=== PATIENT | female | born 1965 | race African-American/Black ===

== ENCOUNTER 2016-07-20 06:00 | Emergency (ER) | payer MEDICAID ==
[~2016-07-20] VITALS: Ht 170.2 cm; Wt 68.0 kg
[2016-07-20 06:09] VITALS: BP 160/95
--- NOTE | 2016-07-20 06:14 | NUR ---
AMBULATED TO ER BED 5
--- NOTE | 2016-07-20 06:20 | NUR ---
RECIEVED PT TO ED. PT C.O. LEFT KNEE PAIN/SWELLING. PT IS A/O X3, STABLE. NO ACUTE DISTRESS NOTED. DENIES CHEST PAIN, SOB, AND N/V. VSS ARE STABLE. WILL CONTINUE TO MONITOR PT.
[2016-07-20] MEDS ORDERED: KETOROLAC 60 MG/2 ML VIAL IM ONE (07:40)
--- NOTE | 2016-07-20 08:05 | NUR ---
Patient discharged with v/s stable. Written and verbal after care instructions given and explained. Patient alert, oriented and verbalized understanding of instructions. Ambulatory with steady gait. All questions addressed prior to discharge. ID band removed. Patient advised to follow up with PMD. Rx of BACTRIM, KEFLEX AND MOTRIN given. Patient educated on indication of medication including possible reaction and side effects. Opportunity to ask questions provided and answered.
[2016-07-20 08:17] VITALS: BP 120/80
== END 2016-07-20 08:05 | disposition home or self-care (01) ==
LOC: MED 06:00
DX: M70.52 Other bursitis of knee, left knee (principal); L03.116 Cellulitis of left lower limb; F17.200 Nicotine dependence, unspecified, uncomplicated
CPT/HCPCS: 73562; 96372; 99284; J1885

== ENCOUNTER 2016-08-16 02:23 | Emergency (ER) | payer MEDICAID ==
[~2016-08-16] VITALS: Ht 167.6 cm; Wt 74.8 kg
[2016-08-16 02:31] VITALS: BP 141/88
--- NOTE | 2016-08-16 02:52 | NUR ---
AMBULATED TO ER BED 7
--- NOTE | 2016-08-16 02:55 | NUR ---
PATIENT PRESENTS TO ED WITH LEFT LEG PAIN AND SWELLING . PT STATES RECENTLY BEING DIAGNOSED WITH CELLULITIS TO LEFT LEG, AND COMPLETED PRESCRIBED ABX. DENIES N/V/D; SKIN IS PINK/WARM/DRY; AAOX4 WITH EVEN AND STEADY GAIT; LUNGS CLEAR BL; HR EVEN AND REGULAR; PT DENIES ANY FEVER, CP, SOB, OR COUGH AT THIS TIME; PATIENT STATES PAIN OF 9/10 AT THIS TIME; VSS; PATIENT POSITIONED FOR COMFORT; HOB ELEVATED; BEDRAILS UP X2; BED DOWN. ER MD MADE AWARE OF PT STATUS.
[2016-08-16] MEDS ORDERED: LIDOCAINE/EPI 1% 1:100000 20 ML VIAL INJ ONE (03:45)
[2016-08-16] MEDS ORDERED: KETOROLAC 30 MG/ML VIAL IM ONE (03:45)
[2016-08-16 04:40] VITALS: BP 132/87
--- NOTE | 2016-08-16 04:40 | NUR ---
Patient discharged with v/s stable. Written and verbal after care instructions given and explained. Patient alert, oriented and verbalized understanding of instructions. Ambulatory with steady gait. All questions addressed prior to discharge. ID band removed. Patient advised to follow up with PMD. Rx of NORCO 5MG-325MG TABLET AND NAPROSYN 500MG TABLET given. Patient educated on indication of medication including possible reaction and side effects. Opportunity to ask questions provided and answered.
== END 2016-08-16 04:40 | disposition home or self-care (01) ==
LOC: MED 02:23
DX: M70.52 Other bursitis of knee, left knee (principal); Y93.89 Activity, other specified
CPT/HCPCS: 20610; 96372; 99284; J1885; J2001

== ENCOUNTER 2016-10-04 00:55 | Emergency (ER) | payer MEDICAID ==
[~2016-10-04] VITALS: Ht 167.6 cm; Wt 77.1 kg
[2016-10-04 01:11] VITALS: BP 132/84
--- NOTE | 2016-10-04 01:44 | NUR ---
PT TAKEN TO BED 7
--- NOTE | 2016-10-04 01:47 | NUR ---
PATIENT PRESENTS TO ED WITH C/O LEFT KNEE PAIN . PT DENIES N/V/D; SKIN IS PINK/WARM/DRY; AAOX4 WITH EVEN AND STEADY GAIT; LUNGS CLEAR BL; HR EVEN AND REGULAR; PT DENIES ANY FEVER, CP, SOB, OR COUGH AT THIS TIME; PATIENT STATES PAIN OF 8/10 AT THIS TIME; VSS; PATIENT POSITIONED FOR COMFORT; HOB ELEVATED; BEDRAILS UP X2; BED DOWN. ER MD MADE AWARE OF PT STATUS.
--- NOTE | 2016-10-04 02:21 | NUR ---
Dr. Todd evaluating patient at bedside.
[2016-10-04 03:07] VITALS: BP 127/77
== END 2016-10-04 03:07 | disposition home or self-care (01) ==
LOC: MED 00:55
DX: M25.562 Pain in left knee (principal)

== ENCOUNTER 2017-01-31 05:09 | Emergency (ER) | payer MEDICAID ==
[~2017-01-31] VITALS: Ht 167.6 cm; Wt 77.1 kg
[2017-01-31 05:19] VITALS: BP 119/69
--- NOTE | 2017-01-31 05:26 | NUR ---
AMBULATED TO ER BED 7
--- NOTE | 2017-01-31 05:27 | NUR ---
Patient being evaluated by physician at bedside.
[2017-01-31] MEDS ORDERED: KETOROLAC 60 MG/2 ML VIAL IM ONE (05:30)
[2017-01-31 05:52] VITALS: BP 119/69
--- NOTE | 2017-01-31 05:52 | NUR ---
Patient discharged with v/s stable. Written and verbal after care instructions given and explained. Patient alert, oriented and verbalized understanding of instructions. Ambulatory with steady gait. All questions addressed prior to discharge. ID band removed. Patient advised to follow up with PMD. Rx of norco, motrin given. Patient educated on indication of medication including possible reaction and side effects. Opportunity to ask questions provided and answered.
== END 2017-01-31 05:52 | disposition home or self-care (01) ==
LOC: MED 05:09
DX: M25.562 Pain in left knee (principal); F17.200 Nicotine dependence, unspecified, uncomplicated
CPT/HCPCS: 96372; 99283; J1885

== ENCOUNTER 2018-11-20 03:16 | Emergency (ER) | payer MEDICAID ==
[~2018-11-20] VITALS: Ht 167.6 cm; Wt 72.1 kg
[2018-11-20 03:17] VITALS: BP 150/90
--- NOTE | 2018-11-20 03:17 | NUR ---
TO BED # 4 AMBULATORY
--- NOTE | 2018-11-20 03:20 | NUR ---
pt came into er with c/o pain to the right eye. pt also had some discomfort under her breasts. pt has a mild rash under breast area. pt eye was red. pt denied blurred vision. pt is a/ox4. er md made aware. safety measures in place. pt pain level is 6/10 at this time.
--- NOTE | 2018-11-20 03:40 | NUR ---
er at pt bedside
[2018-11-20] MEDS ORDERED: FLUORESCEIN OPTH STRIP 0.6 MG ONE (03:49)
[2018-11-20 03:50] VITALS: BP 150/90
--- NOTE | 2018-11-20 03:50 | NUR ---
Patient discharged with v/s stable. Written and verbal after care instructions given and explained. Patient alert, oriented and verbalized understanding of instructions. Ambulatory with steady gait. All questions addressed prior to discharge. ID band removed. Patient advised to follow up with PMD. Rx of CIPRO OPHTHALMIC TAMIKO, MOTRIN, AND KETOCONAZOLE TOPICAL CREAM given. Patient educated on indication of medication including possible reaction and side effects. Opportunity to ask questions provided and answered.
[2018-11-23] MEDS ORDERED: FLUORESCEIN OPTH STRIP 0.6 MG OP ONE (06:35)
== END 2018-11-20 03:50 | disposition home or self-care (01) ==
LOC: MED 03:16
DX: H10.9 Unspecified conjunctivitis (principal); B96.89 Other specified bacterial agents as the cause of diseases classified elsewhere; B35.4 Tinea corporis; F17.200 Nicotine dependence, unspecified, uncomplicated
CPT/HCPCS: 99283

== ENCOUNTER 2021-02-17 06:33 | Emergency (ER) | payer MEDICAID ==
[~2021-02-17] VITALS: Ht 167.6 cm; Wt 81.6 kg
[2021-02-17 06:50] VITALS: BP 158/84
--- NOTE | 2021-02-17 06:50 | NUR ---
TO BED AMBULATORY
[2021-02-17 08:32] LABS: BASOPHILS # (AUTO) 0.1 K/uL (0.00-0.22); BASOPHILS % (AUTO) 0.7 % (0.0-2.0); EOSINOPHILS # (AUTO) 0.1 K/uL (0-0.4); EOSINOPHILS % (AUTO) 1.5 % (0.0-4.0); HEMATOCRIT 43.8 % (36-48); HEMOGLOBIN 14.2 g/dL (12.0-16.0); LYMPHOCYTES # (AUTO) 1.5 K/uL (2.5-16.5); LYMPHOCYTES % (AUTO) 16.6 % (20.5-51.1); MEAN CORPUSCULAR HEMOGLOBIN 28 pg (27-31); MEAN CORPUSCULAR HGB CONC 33 g/dL (33-37); MEAN CORPUSCULAR VOLUME 86.6 fL (80-94); MONOCYTES # (AUTO) 0.6 K/uL (0.8-1.0); MONOCYTES % (AUTO) 6.2 % (1.7-9.3); NEUTROPHILS # (AUTO) 6.7 K/uL (1.8-7.7); PLATELET COUNT (AUTO) 274 K/uL (140-450); RED BLOOD CELL COUNT(AUTO) 5.06 MIL/uL (4.20-5.40); RED CELL DISTRIBUTION WIDTH 17.1 % (11.6-13.7); WHITE BLOOD COUNT (AUTO) 8.9 K/uL (4.8-10.8)
[2021-02-17 08:51] LABS: ALBUMIN 3.5 g/dL (3.4-5.0); ANION GAP 10.4 (8-16); CREATININE 0.8 mg/dL (0.6-1.3); POTASSIUM 3.4 mmol/L (3.5-5.1); TOTAL BILIRUBIN 0.3 mg/dL (0.0-1.0)
[2021-02-17] MEDS ORDERED: FURO-572 PO (10:20)
[2021-02-17 10:29] VITALS: BP 150/50
--- NOTE | 2021-02-17 10:29 | NUR ---
Patient discharged with v/s stable. Written and verbal after care instructions given and explained. Patient alert, oriented and verbalized understanding of instructions. Ambulatory with steady gait. All questions addressed prior to discharge. ID band removed. Patient advised to follow up with PMD. Rx of Furosemide given. Patient educated on indication of medication including possible reaction and side effects. Opportunity to ask questions provided and answered.
== END 2021-02-17 10:29 | disposition home or self-care (01) ==
LOC: MED 06:33
DX: R60.0 Localized edema (principal); F17.210 Nicotine dependence, cigarettes, uncomplicated; Z71.6 Tobacco abuse counseling
CPT/HCPCS: 36415; 71045; 80053; 83690; 83880; 84484; 85025; 93005; 99285; Q0092

== ENCOUNTER 2021-03-13 04:40 | Emergency (ER) | payer MEDICAID ==
[~2021-03-13] VITALS: Ht 167.6 cm; Wt 81.6 kg
[~2021-03-13 04:40] MED LIST: FURO-572 PO
[2021-03-13 04:51] VITALS: BP 159/84
--- NOTE | 2021-03-13 05:09 | NUR ---
55 yo f bib self with c/c of vaginal itch x4days. pt states their is discharge but doesnt remember what color it is. states their is a bad smell although it is not a fishy smell. pt states she has burning inside and itching on thighs. pt has been applying a medicated powder she given for her arm pits, little to no relief. pt denies having sex, stated she is celibate. hx:denies rx:psych meds denies allerg
--- NOTE | 2021-03-13 05:23 | NUR ---
pt ambulated to rr to give urine.
--- NOTE | 2021-03-13 05:27 | NUR ---
urine collected and given to jose from lab
[2021-03-13 05:36] LABS: APPEARANCE,URINE HAZY (CLEAR); BILIRUBIN,URINE NEGATIVE (NEGATIVE); BLOOD, URINE 2+ (NEGATIVE); COLOR,URINE YELLOW (YELLOW); LEUKOCYTE ESTERASE ,URINE 2+ (NEGATIVE); NITRITE, URINE NEGATIVE (NEGATIVE); UGLUCOSE NEGATIVE (NEGATIVE)
--- NOTE | 2021-03-13 05:40 | NUR ---
Female Cooler Conveyor Loader accompanied female patient for Pelvic Exam.
--- NOTE | 2021-03-13 05:41 | NUR ---
wet mount collected and given to jose from lab.
[2021-03-13 05:47] LABS: RBC,URINE 0-5 /HPF (0-5); WBC,URINE 20-60 /HPF (0-5)
[2021-03-13] MEDS ORDERED: cephALEXin 500 MG CAP PO ONE (05:55)
--- NOTE | 2021-03-13 06:18 | NUR ---
pt is resting. opens eyes to sound. equal rise and fall of chest wall. pt in stable condition. bed locked in lowest position, side rails x2.
[2021-03-13] MEDS ORDERED: CEPH-588 PO (06:34)
[2021-03-13] MEDS ORDERED: METR500T1 PO (06:34)
[2021-03-13 06:40] VITALS: BP 159/84
--- NOTE | 2021-03-13 06:40 | NUR ---
Patient discharged with v/s stable. Written and verbal after care instructions given and explained. Patient alert, oriented and verbalized understanding of instructions. Ambulatory with steady gait. All questions addressed prior to discharge. ID band removed. Patient advised to follow up with PMD. Rx of keflex and flagyl given. Patient educated on indication of medication including possible reaction and side effects. Opportunity to ask questions provided and answered.
== END 2021-03-13 06:40 | disposition home or self-care (01) ==
LOC: MED 04:40
DX: N76.0 Acute vaginitis (principal); B96.89 Other specified bacterial agents as the cause of diseases classified elsewhere; N39.0 Urinary tract infection, site not specified; Z79.899 Other long term (current) drug therapy
CPT/HCPCS: 81001; 87086; 87210; 99283

== ENCOUNTER 2021-12-23 16:53 | Emergency (ER) | payer MEDICAID ==
[~2021-12-23] VITALS: Ht 167.6 cm; Wt 79.4 kg
[~2021-12-23 16:53] MED LIST changes: +CEPH-588 PO; +METR500T1 PO
[2021-12-23 17:12] VITALS: BP 119/72
--- NOTE | 2021-12-23 17:19 | NUR ---
pt requested to be placed outside in wheelchair so she can smoke. pt in wheelchair outside at thi time
--- NOTE | 2021-12-23 18:00 | NUR ---
56 y/o female, c/o left knee pain that started this morning. pt states "i want my knee drained and a hydrocortisone shot ". skin is pink/warm/dry. a&o x4, states she is unable to walk on it. lungs clear bl, heart rate even and regular. pt denies any fever, cp, sob, or cough at this time. pt states pain is 9/10 at this time. ermd made aware of pt. pmh: [facility] [place] [facility]: denies
[2021-12-23] MEDS ORDERED: KETOROLAC 15 MG/ML VIAL IM ONE (18:15)
[2021-12-23] MEDS ORDERED: HYDROcodone/APAP 5/325 MG 1 TAB TAB PO ONE (18:15)
[2021-12-23] MEDS ORDERED: ACET-8386 PO (18:17)
[2021-12-23] MEDS ORDERED: DICL20GE TP (18:17)
[2021-12-23 18:34] VITALS: BP 119/72
--- NOTE | 2021-12-23 18:35 | NUR ---
Patient discharged with v/s stable. Written and verbal after care instructions given and explained. Patient alert, oriented and verbalized understanding of instructions. Ambulatory with friend to car. All questions addressed prior to discharge. ID band removed. Patient advised to follow up with PMD. Rx of harleen floyd (sent) given. Patient educated on indication of medication including possible reaction and side effects. Opportunity to ask questions provided and answered.
== END 2021-12-23 18:35 | disposition home or self-care (01) ==
LOC: MED 16:53
DX: M25.562 Pain in left knee (principal); Z79.899 Other long term (current) drug therapy
CPT/HCPCS: 99283